=== PATIENT | male | born 1990 | race Caucasian/White ===

== ENCOUNTER 2018-12-20 20:15 | Emergency (ER) | payer BC ==
[2018-12-20 21:12] VITALS: BP 125/84; PULSE 75; RESP 20; TEMP 98.5
--- NOTE | 2018-12-20 22:05 | XR ---
EXAMINATION TYPE: XR hand complete RT DATE OF EXAM: 12/20/2018 COMPARISON: NONE HISTORY: 28-year-old male with pain. Right ring finger right hand swollen. TECHNIQUE: 3 views FINDINGS: Focal soft tissue swelling involving the distal aspect of the ring finger especially dorsally just pr ior to the nailbed. No underlying acute fracture, subluxation, dislocation. No retained radiopaque fo reign body seen. IMPRESSION: Focal soft tissue swelling distally along the dorsal aspect of the ring finger. No underlying acute o sseous abnormality seen.
--- NOTE | 2018-12-20 22:51 | ED ---
General Adult HPI - General Source: patient, RN notes reviewed, old records reviewed Mode of arrival: ambulatory Limitations: no limitations <Scott Reilly - Last Filed: 12/20/18 23:13> <Heather Escamilla - Last Filed: 12/22/18 06:27> - General Chief complaint: Skin/Abscess/Foreign Body Stated complaint: Finger infection Time Seen by Provider: 12/20/18 21:21 - History of Present Illness Initial comments: 28-year-old male patient, no pertinent past medical history presents to ED with paronychia to distal aspect of right fourth digit. Patient states this began today. Patient states that he has some swelling erythema bordering the nail. Patient does state that he had some green drainage coming from the area of inflammation earlier today. Patient denies any systemic symptoms. Patient denies any nausea vomiting diarrhea, fevers or chills. Patient denies any other complaints. Systemic: Pt denies fatigue, myalgia, fever/chills, rash. Pt denies weakness, night sweats, weight loss. Neuro: Pt denies headache, visual disturbances, syncope or pre-syncope. HEENT: Pt denies ocular discharge or irritation, otalgia, rhinorrhea, pharyngitis or notable lymphadenopathy. Cardiopulmonary: Pt denies chest pain, SOB, heart palpitations, dyspnea on exertion. Abdominal/GI: Pt denies abdominal pain, n/v/d. : Pt denies dysuria, burning w/ urination, frequency/urgency. Denies new onset urinary or bowel incontinence. MSK: Pt denies myalgia, loss of strength or function in extremities. Neuro: Pt denies new onset weakness, paresthesias. (Scott Reilly) - Related Data Previous Rx's Medication Instructions Recorded Sulfamethox-Tmp 800-160Mg [Bactrim 1 tab PO Q12HR #20 tab 12/20/18 DS 800-160 mg] Allergies Allergy/AdvReac Type Severity Reaction Status Date / Time No Known Allergies Allergy Verified 12/20/18 20:47 Review of Systems ROS Other: All systems not noted in ROS Statement are negative. <Scott Reilly - Last Filed: 12/20/18 23:13> ROS Other: All systems not noted in ROS Statement are negative. <Heather Escamilla - Last Filed: 12/22/18 06:27> ROS Statement: Those systems with pertinent positive or pertinent negative responses have been documented in the HPI. Past Medical History Past Medical History: No Reported History History of Any Multi-Drug Resistant Organisms: None Reported Past Surgical History: No Surgical Hx Reported Past Psychological History: No Psychological Hx Reported Smoking Status: Current every day smoker Past Alcohol Use History: Occasional Past Drug Use History: None Reported <Soctt Reilly - Last Filed: 12/20/18 23:13> General Exam Limitations: no limitations <Scott Reilly - Last Filed: 12/20/18 23:13> - General Exam Comments Initial Comments: Constitutional: NAD, AOX3, Pt has pleasant affect. HEENT: NC/AT, trachea midline, neck supple, no lymphadenopathy. Posterior pharynx non erythematous, without exudates. External ears appear normal, without discharge. Mucous membranes moist. Eyes PERRLA, EOM intact. There is no scleral icterus. No pallor noted. Cardiopulmonary: RRR, no murmurs, rubs or gallops, no JVD noted. Lungs CTAB in anterior and posterior naik. No peripheral edema. Abdominal exam: Abdomen soft and non-distended. Abdomen non-tender to palpation in all 4 quadrants. Bowel sounds active in LLQ. No hepatosplenomegaly. No ecchymosis Neuro: CN II-XII grossly intact. No nuchal rigidity. MSK: Paronychia noted at right ring finger. Erythema and fluctuance noted at proximal base of the nail. No streaking. Approximately 2 x 2 centimeters. No involvement of flexor sheath, flexor aspect of finger. Full active range of motion of the digit. Cap refill less than 2 seconds. I&D revealed a small amount of drainage and pus. No posterior calf tenderness bilaterally, homans sign negative bilaterally. Posterior tibialis and radial pulse +2 bilaterally. Sensation intact in upper and lower extremities. Full active ROM in upper and lower extremities, 5/5 stregnth. (Scott Reilly) Course Vital Signs 12/20/18 20:45 Temperature 98.5 F Pulse Rate 75 Respiratory 20 Rate Blood Pressure 125/84 O2 Sat by Pulse 97 Oximetry Procedures - Incision & Drainage Consent Obtained: verbal consent Indication: paronychia Site: hand Size (cm): 2 I&D Cleaning Method: Alcohol Wipe Scalpel Used: #11 Irrigation Performed?: Yes I&D Drainage Obtained: Pus, Blood Culture Obtained?: Yes Patient Tolerated Procedure: well, no complications <Scott Reilly - Last Filed: 12/20/18 23:13> Medical Decision Making <Scott Reilly - Last Filed: 12/20/18 23:13> <Heather Escamilla - Last Filed: 12/22/18 06:27> - Medical Decision Making 28-year-old male patient, no pertinent past medical history presents to ED with paronychia to distal aspect of right fourth digit. Patient states this began today. Patient states that he has some swelling erythema bordering the nail. Patient does state that he had some green drainage coming from the area of inflammation earlier today. Patient denies any systemic symptoms. Patient denies any nausea vomiting diarrhea, fevers or chills. Patient denies any other complaints. Paronychia noted at right ring finger. Erythema and fluctuance noted at proximal base of the nail. No streaking. Approximately 2 x 2 centimeters. No involvement of flexor sheath, flexor aspect of finger. Full active range of motion of the digit. Cap refill less than 2 seconds. I&D revealed a small amount of drainage and pus. Plain film of finger displayed focal soft tissue swelling along the dorsal aspect of the ring finger. No acute osseous abnormality. Patient discharged with Bactrim. She'll follow up with primary care bride in 1-2 days. Patient return to ER if condition worsens in any way. Case discussed with Dr. Escamilla. (Scott Reilly) I was available for consultation in the emergency department. The history and physical exam were done by the midlevel provider. I was consulted for this patient's care. I reviewed the case with the midlevel provider and based on their presentation of the patient, I agree with the assessment, medical decision making and plan of care as documented. Chart was dictated using [employer] dictation software. Attempts were made to correct any dictation errors however some typographical errors may persist. (Heather Escamilla) Disposition Is patient prescribed a controlled substance at d/c from ED?: No <Scott Reilly - Last Filed: 12/20/18 23:13> <Heather Escamilla - Last Filed: 12/22/18 06:27> Clinical Impression: Paronychia Disposition: HOME SELF-CARE Condition: Stable Instructions (If sedation given, give patient instructions): Paronychia (ED) Additional Instructions: Patient to adhere to previously discussed treatment plan and will take medication(s) as directed. Patient to follow up with PCP in 1-2 days. Patient to return to ED if symptoms do not improve. Take medications as directed. Follow up with primary care provider tomorrow. Return to ER if condition worsens in any way. Prescriptions: Sulfamethox-Tmp 800-160Mg [Bactrim DS 800-160 mg] 1 tab PO Q12HR #20 tab Referrals: Ashia Ray MD [Primary Care Provider] - 1-2 days
== END 2018-12-20 23:12 | disposition home or self-care (01) ==
LOC: EC 20:15
DX: L03.011 Cellulitis of right finger (principal); F17.200 Nicotine dependence, unspecified, uncomplicated
CPT/HCPCS: 10060; 87070; 87205; 99284

== ENCOUNTER → 2020-03-15 | Outpatient (CLI) | payer BC | END | disposition home or self-care (01) | LOC: LABWHC1 15:08 | PROVIDERS: ATTEND Internal Medicine | DX: Z20.828 Contact with and (suspected) exposure to other viral communicable diseases (principal) | CPT/HCPCS: U0003; C9803 ==